=== PATIENT | male | born 1990 | race Caucasian/White ===

== ENCOUNTER 2017-01-15 03:13 | Emergency (ER) | payer SELFPAY ==
[~2017-01-15] VITALS: Ht 180.3 cm; Wt 63.5 kg
[~2017-01-15 03:13] MED LIST: ORPH100T PC; SULF1TAB35 PO
[2017-01-15] MEDS ORDERED: LACTATED RINGERS 1,000 ML IV ONE (03:29)
[2017-01-15] MEDS ORDERED: PROMETHAZINE INJ 25 MG/ML (PHENERGAN) AMP IVP STA (03:29)
[2017-01-15] MEDS ORDERED: KETOROLAC 30 MG/ML VIAL IVP STA (03:29)
[2017-01-15] MEDS ORDERED: diphenhydrAMINE 50 MG/ML INJ (BENADRYL) IV STA (03:29)
--- NOTE | 2017-01-15 03:42 | ED Headache ---
General Chief Complaint: Head/Cervical Problems Stated Complaint: MIGRAINE Nursing Triage Note: Stated started having migraine at 1999 last night. No meds pto Nursing Sepsis Screen: No Definite Risk Source: patient History of Present Illness Time seen by provider: 03:30 Initial Comments PT ARRIVES IN ER--CAME DOWN HERE FROM OB DEPT WHERE GIRLFRIEND JUST DELIVERED BABY C/O MIGRAINE HEADACHE SINCE 1999 LAST PM HEADACHE IS GLOBAL IS LIGHT SENSITIVE AND NAUSEATED NO VOMITING NO PARESTHESIAS OR MOTOR DEFICITS NO RECENT ILLNESS, FEVER, ETC. HAS HISTORY OF MIGRAINES, BUT NOT VERY OFTEN AND USUALLY NOT THIS BAD HAS NOT TAKEN ANYTHING FOR PAIN Allergies and Home Medications Allergies Coded Allergies: No Known Drug Allergies (Unverified , 01/15/17) Constitutional: no symptoms reported Eyes: See HPI, Denies Blurred Vision, Denies Decreased Acuity, Photophobia, Denies Vision Changes Ears, Nose, Mouth, Throat: no symptoms reported Respiratory: no symptoms reported Cardiovascular: no symptoms reported Gastrointestinal: see HPI, No abdominal pain, nausea, No vomiting Genitourinary: no symptoms reported Musculoskeletal: no symptoms reported, No neck pain Skin: no symptoms reported Psychiatric/Neurological: See HPI, Anxiety, Headache, Denies Numbness, Denies Paresthesia, Denies Seizure, Denies Tingling, Denies Tremors, Denies Weakness Past Ynihtut-Huzzef-Hsoetn Hx Patient Social History Alcohol Use: Denies Use Recreational Drug Use: No Smoking Status: Current Everyday Smoker (1 PPD) Type Used: Cigarettes Recent Foreign Travel: No Contact w/Someone Who Travel: No Recent Infectious Disease Expo: No Recent Hopitalizations: No Immunizations Up To Date Tetanus Booster (TDap): Less than 5yrs Seasonal Allergies Seasonal Allergies: No Surgeries HX Surgeries: Yes (HERNIA SX) Surgeries: Abdominal Respiratory Hx Respiratory Disorders: No Cardiovascular Hx Cardiac Disorders: No Neurological Hx Neurological Disorders: Yes Neurological Disorders: Headaches /Migraines Genitourinary Hx Genitourinary Disorders: No Gastrointestinal Hx Gastrointestinal Disorders: No Musculoskeletal Hx Musculoskeletal Disorders: No Endocrine Hx Endocrine Disorders: No HEENT HX ENT Disorders: No Cancer Hx Cancer: No Psychosocial Hx Psychiatric Problems: No Integumentary HX Skin/Integumentary Disorder: Yes (RIGHT ARM ABCESS, MRSA) Blood Transfusions Hx Blood Disorders: No Physical Exam Vital Signs Vital Sign - Last 12Hours 01/15/17 03:21 Temp 96.8 Pulse 67 Resp 18 B/P (MAP) 129/94 Pulse Ox 100 Capillary Refill : Less Than 3 Seconds General Appearance: other (ANXIOUS, MOANING, WRITHING, VERY DRAMATIC. ODOR OF CIGARETTES), thin HEENT: PERRL/EOMI, normal ENT inspection, TMs normal, pharynx normal, photophobia Neck: non-tender, full range of motion, supple, normal inspection Cardiovascular: normal peripheral pulses, regular rate, rhythm, no edema, no JVD, no murmur Respiratory: normal breath sounds, no respiratory distress, no accessory muscle use Gastrointestinal: non tender, soft Back: normal inspection Extremities: normal inspection Psychiatric: alert, oriented x 3 Crainal Nerves: normal hearing, normal speech, PERRL Coordination/Gait: normal gait Motor/Sensory: no motor deficit, no sensory deficit, no pronator drift Skin: normal color, warm/dry Progress/Results/Core Measures Results/Orders My Orders Orders - DELFINO TAYLOR DO Saline Lock/Iv-Start (01/15/17 03:29) Diphenhydramine Injection (Benadryl Inje (01/15/17 03:29) Promethazine Injection (Phenergan Injec (01/15/17 03:29) Ketorolac Injection (Toradol Injection) (01/15/17 03:29) Saline Lock/Iv-Start (01/15/17 03:29) Lactated Ringers (Lr 1000 Ml Iv Solution (01/15/17 03:29) Medications Given in ED Current Medications Medications Dose Ordered Sig/Eze Route Start Time Stop Time Status Last Admin Dose Admin Lactated Ringer's 1,000 ml @ 0 mls/hr Q0M ONCE IV 01/15/17 03:29 01/15/17 03:31 DC 01/15/17 03:45 1,000 MLS/HR Vital Signs/I&O Vital Sign - Last 12Hours 01/15/17 03:21 Temp 96.8 Pulse 67 Resp 18 B/P (MAP) 129/94 Pulse Ox 100 Blood Pressure Mean: 106 Progress Note : Progress Note HEADACHE IMPROVED AT DISMISSAL AND NAUSEA IS GONE Departure Impression Impression: Primary Impression: Migraine Disposition: 01 HOME, SELF-CARE Condition: Improved Departure-Patient Inst. Referrals: NO,LOCAL PHYSICIAN (PCP/Family) Primary Care Physician Patient Instructions: Migraine Headache (DC) Add. Discharge Instructions: HOME, REST LOTS OF CLEAR LIQUIDS FOLLOW UP WITH DRCrystal OF CHOICE TOMORROW IF NO BETTER RETURN TO ER IF WORSE All discharge instructions reviewed with patient and/or family. Voiced understanding. Scripts Ondansetron (Zofran Odt) 4 Mg Tab.rapdis 4 MG PO Q4H for Nausea/Vomiting, #10 TAB Prov: DELFINO TAYLOR DO 01/15/17 Butalb/Acetaminophen/Caffeine (Esgic Capsule) 1 Each Capsule 1-2 EACH PO Q6H Y for HEADACHE, #10 CAP Prov: DELFINO TAYLOR DO 01/15/17 DELFINO TAYLOR DO January 15, 2017 03:42
[2017-01-15] MEDS ORDERED: ONDA4TAB8 PO ×2 (04:10→04:16)
[2017-01-15] MEDS ORDERED: BUTA1CAP45 PO ×2 (04:10→04:16)
[2017-01-15 04:20] VITALS: BP 112/65
== END 2017-01-15 04:20 | disposition home or self-care (01) ==
LOC: EDUNIT# 03:13 → ER 03:16
DX: G43.909 Migraine, unspecified, not intractable, without status migrainosus (principal); F17.210 Nicotine dependence, cigarettes, uncomplicated
CPT/HCPCS: 96374; 96375; 99282

== ENCOUNTER 2017-07-22 13:20 | Emergency (ER) | payer MEDICAID, OTHER ==
[~2017-07-22] VITALS: Ht 180.3 cm; Wt 63.5 kg
[~2017-07-22 13:20] MED LIST changes: +BUTA1CAP45 PO; +ONDA4TAB8 PO
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
[2017-07-22] MEDS ORDERED: TETANUS,DIPTH,PERTUSS P/F (BOOSTRIX) 0.5 ML VIAL IM STA (14:21)
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
--- NOTE | 2017-07-22 14:57 | Diagnostic Imaging Report ---
Three views of the right hand. INDICATION: Thumb swelling and pain. FINDINGS: There is a 4 mm bone fragment seen along the radial aspect of the head of the metacarpal bone noted in the lateral projection which may be related to an avulsion injury. There is no other fracture. No subluxation or dislocation seen. No radiopaque foreign body. IMPRESSION: 4 mm bone fragment is seen along the radial aspect of the head of the metacarpal bone of the right thumb, may relate to an avulsion injury. Correlate clinically. Dictated by: Dictated on workstation # [id number]
[2017-07-22 15:30] VITALS: BP 113/87
== END 2017-07-23 15:30 | disposition home or self-care (01) ==
LOC: EDUNIT# 13:20 → ER 13:23
DX: S52.121A Displaced fracture of head of right radius, initial encounter for closed fracture (principal); G43.909 Migraine, unspecified, not intractable, without status migrainosus; Z87.19 Personal history of other diseases of the digestive system; Z86.14 Personal history of Methicillin resistant Staphylococcus aureus infection; W23.0XXA Caught, crushed, jammed, or pinched between moving objects, initial encounter
CPT/HCPCS: 73130; 90715; 99282

== ENCOUNTER 2019-08-14 18:36 | Emergency (ER) | payer OTHER, MEDICAID ==
[~2019-08-14] VITALS: Ht 182.8 cm; Wt 64.0 kg
--- NOTE | 2019-08-14 19:11 | NUR ---
Pt placed in c-collar in put in fast track per Navneet Anglin.
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
[2019-08-14] MEDS ORDERED: METH-313 PO (19:53)
[2019-08-14] MEDS ORDERED: NAPR-1071 PO (19:53)
[2019-08-14 20:10] VITALS: BP 135/80
== END 2019-08-14 20:10 | disposition home or self-care (01) ==
LOC: EDUNIT# 18:36 → ER 18:37
DX: S16.1XXA Strain of muscle, fascia and tendon at neck level, initial encounter (principal); G43.909 Migraine, unspecified, not intractable, without status migrainosus; F17.210 Nicotine dependence, cigarettes, uncomplicated; V63.5XXA Driver of heavy transport vehicle injured in collision with car, pick-up truck or van in traffic accident, initial encounter
CPT/HCPCS: 70450; 71101; 72125; 73030

== ENCOUNTER 2020-05-13 19:18 | Emergency (ER) | payer SELFPAY ==
[~2020-05-13] VITALS: Ht 180 cm; Wt 63.5 kg
[~2020-05-13 19:18] MED LIST changes: +METH-313 PO; +NAPR-1071 PO
--- NOTE | 2020-05-13 19:35 | ED General ---
General Chief Complaint: General Problems/Pain Stated Complaint: BLEEDING FROM PENIS Source of Information: Patient Exam Limitations: No Limitations History of Present Illness Date Seen by Provider: May 13, 2020 Time Seen by Provider: 19:35 Initial Comments To ER with reports of bleeding to the left side of the scrotum that began just prior to arrival. He was in class, went to the restroom, noticed some blood. Denies any known injury. Severity: Mild Associated Systoms: Denies Symptoms Allergies and Home Medications Allergies Coded Allergies: No Known Drug Allergies (Unverified , 01/15/17) Home Medications Methocarbamol 750 Mg Tablet, 750 MG PO Q4H PRN for PAIN-MODERATE (5-7) Prescribed by: TJ MARTINEZ on 08/14/191952 Naproxen 500 Mg Tablet, 500 MG PO BID PRN for PAIN-SEVERE (8-10) Prescribed by: TJ MARTINEZ on 08/14/191952 Patient Home Medication List Home Medication List Reviewed: Yes Review of Systems Review of Systems Constitutional: see HPI EENTM: see HPI Respiratory: no symptoms reported Cardiovascular: no symptoms reported Genitourinary: see HPI Musculoskeletal: no symptoms reported Skin: no symptoms reported (I believe) Psychiatric/Neurological: See HPI Hematologic/Lymphatic: No Symptoms Reported Past Sambmbn-[id number]-Qeddig Hx Patient Social History Alcohol Use: Occasionally Uses Recreational Drug Use: No Smoking Status: Current Everyday Smoker Type Used: Cigarettes 2nd Hand Smoke Exposure: Yes Recent Foreign Travel: No Contact w/Someone Who Travel: No Recent Hopitalizations: No Immunizations Up To Date Tetanus Booster (TDap): Less than 5yrs Seasonal Allergies Seasonal Allergies: No Past Medical History Surgeries: Yes (HERNIA SX) Abdominal Respiratory: No Cardiac: No Neurological: Yes Headaches /Migraines Genitourinary: No Gastrointestinal: No Musculoskeletal: No Endocrine: No HEENT: No Cancer: No Psychosocial: No Integumentary: Yes (RIGHT ARM ABCESS, MRSA) Blood Disorders: No Physical Exam Vital Signs Vital Signs - First Documented 05/13/20 19:23 Temp 36.2 Pulse 70 Resp 20 B/P (MAP) 108/78 (88) Pulse Ox 100 O2 Delivery Room Air Capillary Refill : Height, Weight, BMI Height: 5'11" Weight: 140lbs. oz. [id number]; 19.00 BMI Method:Stated General Appearance: No Apparent Distress, WD/WN Eyes: Bilateral Eye Normal Inspection, Bilateral Eye PERRL, Bilateral Eye EOMI Genital/Rectal: Other (genital exam done with Tali RN at the bedside. There is a superficial venule on the left side of the scrotum with some minor oozing of blood easily controlled with direct pressure and silver nitrate.) Extremity: Normal Capillary Refill, Normal Inspection Neurologic/Psychiatric: Alert, Oriented x3 Skin: Normal Color, Warm/Dry Progress/Results/Core Measures Suspected Sepsis SIRS Temperature: Pulse: Respiratory Rate: Blood Pressure / Mean: Results/Orders Vital Signs/I&O 05/13/20 19:23 Temp 36.2 Pulse 70 Resp 20 B/P (MAP) 108/78 (88) Pulse Ox 100 O2 Delivery Room Air Capillary Refill : Departure Impression Primary Impression: Scrotal bleeding Disposition: HOME, SELF-CARE Condition: Stable Departure-Patient Inst. Decision time for Depature: 19:43 Referrals: NO,LOCAL PHYSICIAN (PCP/Family) Primary Care Physician Patient Instructions: Wound Care TJ MARTINEZ APRN May 13, 2020 19:35
[2020-05-13 19:50] VITALS: BP 108/78
== END 2020-05-13 19:52 | disposition home or self-care (01) ==
LOC: EDUNIT# 19:18 → ER 19:20
DX: N50.1 Vascular disorders of male genital organs (principal); F17.210 Nicotine dependence, cigarettes, uncomplicated
CPT/HCPCS: 99281

== ENCOUNTER → 2022-01-02 | Outpatient (CLI) | payer OTHER ==
[~2022-01-02] MED LIST changes: -SULF1TAB35 PO; +SULF1TAB38 PO
== END ==
LOC: CARD 15:00
PROVIDERS: ATTEND Nurse Practitioner
DX: R07.89 Other chest pain (principal)
CPT/HCPCS: 93306